=== PATIENT | female | born 1950 | race Caucasian/White ===

== ENCOUNTER 2022-12-04 22:19 | Inpatient (IN) | payer MEDICARE, OTHER ==
[2022-12-04] MEDS ORDERED: IPRATROPIUM 0.5 MG/2.5 ML NEBU INHALATION STA (22:24)
[2022-12-04] MEDS ORDERED: ALBUTEROL NEBULIZED 2.5 MG/3 ML INHALATION STA (22:24)
[2022-12-04] MEDS: MAGNESIUM SULFATE-D5W PMX 1 GM in DEXTROSE/WATER 1 100ML.BAG IVPB SCH ×2 (22:32→23:31)
[2022-12-04 22:48] LABS: Basophils % (A) 0 %; Eosinophils # (A) 0.1 k/uL (0-0.7); Eosinophils % (A) 1 %; HCT 42.5 % (34.0-46.0); Lymphocytes # (A) 0.5 k/uL (1.0-4.8); Lymphocytes % (A) 5 %; MCH 31.8 pg (25.0-35.0); MCV 96.4 fL (80.0-100.0); Mean Platelet Volume 8.1; Monocytes # (A) 0.8 k/uL (0-1.0); Monocytes % (A) 7 %; Neutrophils # (A) 9.2 k/uL (1.3-7.7); Neutrophils % (A) 85 %; Platelet Count 194 k/uL (150-450); RBC 4.41 m/uL (3.80-5.40); RDW 13.5 % (11.5-15.5); WBC 10.8 k/uL (3.8-10.6)
--- NOTE | 2022-12-04 22:52 | ED ---
General Adult HPI - General Chief complaint: Shortness of Breath Stated complaint: SOB Time Seen by Provider: 12/04/22 22:21 Source: patient Mode of arrival: EMS Limitations: no limitations - History of Present Illness Initial comments: This is a 72-year-old female with a past medical history including COPD and hypertension presents emergency department via EMS for shortness of breath. The patient stated that she has had increasing shortness of breath yesterday with worsening today. The patient stated that she could not take a full deep breath today so she called EMS. EMS did arrive and reported the patient had 60% oxygen saturation on room air. The patient had significant wheezing per EMS and she was given a DuoNeb and site Medrol. The patient had improvement of her breathing was taken to the emergency department for further evaluation workup. The patient reported that she still felt short of breath and "like shit." The patient denied any active chest pain or any lightheadedness or dizziness. The patient stated that she does not know what causes her COPD it worse but states that she is not on oxygen at home. The patient was resting in bed comfortably without any acute distress on my evaluation. - Related Data Allergies Allergy/AdvReac Type Severity Reaction Status Date / Time Penicillins Allergy Rash/Hives Verified 12/04/22 22:28 Review of Systems ROS Statement: Those systems with pertinent positive or pertinent negative responses have been documented in the HPI. ROS Other: All systems not noted in ROS Statement are negative. Past Medical History Past Medical History: Asthma, COPD, Hypertension History of Any Multi-Drug Resistant Organisms: None Reported Past Surgical History: No Surgical Hx Reported Past Psychological History: No Psychological Hx Reported Smoking Status: Former smoker Past Alcohol Use History: None Reported Past Drug Use History: None Reported General Exam Limitations: no limitations General appearance: alert, in no apparent distress Head exam: Present: atraumatic, normocephalic, normal inspection Eye exam: Present: normal appearance, PERRL Pupils: Present: normal accommodation ENT exam: Present: normal exam, normal oropharynx, mucous membranes moist Neck exam: Present: normal inspection, full ROM Respiratory exam: Present: wheezes, decreased breath sounds. Absent: respiratory distress Cardiovascular Exam: Present: normal rhythm, tachycardia, normal heart sounds GI/Abdominal exam: Present: soft, normal bowel sounds Extremities exam: Present: normal inspection, full ROM Back exam: Present: normal inspection, full ROM Neurological exam: Present: alert, oriented X3, CN II-XII intact Psychiatric exam: Present: normal affect, normal mood Skin exam: Present: warm, dry Course Vital Signs 12/04/22 12/04/22 12/04/22 22:20 22:33 22:50 Temperature 98.8 F Pulse Rate 115 H 110 H 109 H Respiratory 22 Rate Blood Pressure 149/108 O2 Sat by Pulse 95 Oximetry 12/04/22 12/05/22 23:27 00:00 Temperature 98.1 F Pulse Rate 98 99 Respiratory 20 18 Rate Blood Pressure 141/85 O2 Sat by Pulse 97 97 Oximetry EKG Findings - EKG Comments: EKG Findings:: An EKG was obtained and was interpreted by myself showing a rate of 114, AK interval 164, QRS duration of 85 and QTC of 395. This EKG showed a sinus tachycardia without any ST segment elevation or depression noted. Medical Decision Making - Medical Decision Making Was pt. sent in by a medical professional or institution (, PA, ENTRY LEVEL ELECTRICAL ENGINEER, urgent care, hospital, or custodial...) When possible be specific @ -No Did you speak to anyone other than the patient for history (EMS, parent, family, police, friend...)? What history was obtained from this source @ -Yes, EMS who stated they gave the patient a DuoNeb and 125 mg Solu-Medrol Did you review nursing and triage notes (agree or disagree)? Why? @ -I reviewed and agree with nursing and triage notes Were old charts reviewed (outside hosp., previous admission, EMS record, old EKG, old radiological studies, urgent care reports/EKG's, custodial records)? Report findings @ -No old charts were reviewed Differential Diagnosis (chest pain, altered mental status, abdominal pain women, abdominal pain men, vaginal bleeding, weakness, fever, dyspnea, syncope, headache, dizziness, GI bleed, back pain, seizure, CVA, palpatations, mental health)? @ -COPD exas, pneumonia, pneumothorax, ACS EKG interpreted by me (3pts min.). @ -As above X-rays interpreted by me (1pt min.). @ -Chest x-ray was obtained and was interpreted by myself showing bilateral small pleural effusions CT interpreted by me (1pt min.). @ -None done U/S interpreted by me (1pt. min.). @ -None done What testing was considered but not performed or refused? (CT, X-rays, U/S, labs)? Why? @ -None What meds were considered but not given or refused? Why? @ -None Did you discuss the management of the patient with other professionals (professionals i.e. , PA, ENTRY LEVEL ELECTRICAL ENGINEER, lab, RT, psych nurse, social science research assistant, jacket preparer, teacher, state highway police officer, logistics operations manager)? Give summary @ -Yes, admitting physician was contacted regarding patient admission. Was smoking cessation discussed for >3mins.? @ -No Was critical care preformed (if so, how long)? @ -Yes, see above Were there social determinants of health that impacted care today? How? (Homelessness, low income, unemployed, alcoholism, drug addiction, transportation, low edu. Level, literacy, decrease access to med. care, skilled nursing, rehab)? @ -No Was there de-escalation of care discussed even if they declined (Discuss DNR or withdrawal of care, Hospice)? DNR status @ -No What co-morbidities impacted this encounter? (DM, HTN, Smoking, COPD, CAD, Cancer, CVA, ARF, Chemo, Hep., AIDS, mental health diagnosis, sleep apnea, morbid obesity)? @ -COPD, hypertension Was patient admitted / discharged? Hospital course, mention meds given and route, prescriptions, significant lab abnormalities, going to OR and other pert inent info. @ -The patient was seen and evaluated emergency department. Physical exam, the patient was resting in bed without any acute distress. The patient did have improvement of her symptoms prior to arrival secondary to the patient's receiving medications by EMS. Vital signs admission were stable. Laboratory workup was obtained and was largely within normal as however troponin was elevated. The patient did receive a second breathing treatment here in the emergency department as well as magnesium. On reevaluation, the patient's respiratory status had greatly improved and the patient was resting in bed company. A second troponin level was also obtained but was increasing therefore the patient was started on IV heparin and treated for an NSTEMI in addition to t he COPD exacerbation. Due to these findings, the patient will be admitted for further workup and evaluation. The patient was agreeable to this and all her questions were answered appropriately. The patient was admitted stable condition. Undiagnosed new problem with uncertain prognosis? @ -No Drug Therapy requiring intensive monitoring for toxicity (Heparin, Nitro, Insulin, Cardizem)? @ -Heparin Were any procedures done? @ -No Diagnosis/symptom? @ -COPD exas, NSTEMI Acute, or Chronic, or Acute on Chronic? @ -Acute Uncomplicated (without systemic symptoms) or Complicated (systemic symptoms)? @ -Complicated Side effects of treatment? @ -No Exacerbation, Progression, or Severe Exacerbation? @ -Exacerbation Poses a threat to life or bodily function? How? (Chest pain, USA, CT, pneumonia, PE, COPD, DKA, ARF, appy, cholecystitis, CVA, Diverticulitis, Homicidal, Suicidal, threat to staff... and all critical care pts) @ -Yes, NSTEMI can lead to permanent cardiac damage, possible - Lab Data Result diagrams: 12/04/22 22:36 12/04/22 22:36 Lab Results 12/04/22 12/04/22 12/04/22 Range/Units 22:36 22:36 22:36 WBC 10.8 H (3.8-10.6) k/uL RBC 4.41 (3.80-5.40) m/uL Hgb 14.0 (11.4-16.0) gm/dL Hct 42.5 (34.0-46.0) % MCV 96.4 (80.0-100.0) fL MCH 31.8 (25.0-35.0) pg MCHC 33.0 (31.0-37.0) g/dL RDW 13.5 (11.5-15.5) % Plt Count 194 (150-450) k/uL MPV 8.1 Neutrophils % 85 % Lymphocytes % 5 % Monocytes % 7 % Eosinophils % 1 % Basophils % 0 % Neutrophils # 9.2 H (1.3-7.7) k/uL Lymphocytes # 0.5 L (1.0-4.8) k/uL Monocytes # 0.8 (0-1.0) k/uL Eosinophils # 0.1 (0-0.7) k/uL Basophils # 0.0 (0-0.2) k/uL Sodium 133 L (137-145) mmol/L Potassium 4.5 (3.5-5.1) mmol/L Chloride 95 L (98-107) mmol/L Carbon Dioxide 26 (22-30) mmol/L Anion Gap 12 mmol/L BUN 18 H (7-17) mg/dL Creatinine 0.59 (0.52-1.04) mg/dL Est GFR (CKD-EPI)AfAm >90 (>60 ml/min/1.73 sqM) Est GFR (CKD-EPI)NonAf >90 (>60 ml/min/1.73 sqM) Glucose 131 H (74-99) mg/dL Calcium 9.1 (8.4-10.2) mg/dL Magnesium 2.2 (1.6-2.3) mg/dL Total Bilirubin 0.7 (0.2-1.3) mg/dL AST 30 (14-36) U/L ALT 16 (4-34) U/L Alkaline Phosphatase 87 (38-126) U/L Troponin I 0.039 H* (0.000-0.034) ng/mL NT-Pro-B Natriuret Pep pg/mL Total Protein 7.8 (6.3-8.2) g/dL Albumin 4.6 (3.5-5.0) g/dL 12/04/22 12/05/22 Range/Units 22:36 01:28 WBC (3.8-10.6) k/uL RBC (3.80-5.40) m/uL Hgb (11.4-16.0) gm/dL Hct (34.0-46.0) % MCV (80.0-100.0) fL MCH (25.0-35.0) pg MCHC (31.0-37.0) g/dL RDW (11.5-15.5) % Plt Count (150-450) k/uL MPV Neutrophils % % Lymphocytes % % Monocytes % % Eosinophils % % Basophils % % Neutrophils # (1.3-7.7) k/uL Lymphocytes # (1.0-4.8) k/uL Monocytes # (0-1.0) k/uL Eosinophils # (0-0.7) k/uL Basophils # (0-0.2) k/uL Sodium (137-145) mmol/L Potassium (3.5-5.1) mmol/L Chloride (98-107) mmol/L Carbon Dioxide (22-30) mmol/L Anion Gap mmol/L BUN (7-17) mg/dL Creatinine (0.52-1.04) mg/dL Est GFR (CKD-EPI)AfAm (>60 ml/min/1.73 sqM) Est GFR (CKD-EPI)NonAf (>60 ml/min/1.73 sqM) Glucose (74-99) mg/dL Calcium (8.4-10.2) mg/dL Magnesium (1.6-2.3) mg/dL Total Bilirubin (0.2-1.3) mg/dL AST (14-36) U/L ALT (4-34) U/L Alkaline Phosphatase (38-126) U/L Troponin I 0.054 H* (0.000-0.034) ng/mL NT-Pro-B Natriuret Pep 718 pg/mL Total Protein (6.3-8.2) g/dL Albumin (3.5-5.0) g/dL Critical Care Time Critical Care Time: Yes Total Critical Care Time: 35 Disposition Clinical Impression: NSTEMI (non-ST elevated myocardial infarction), COPD exacerbation Disposition: ADMITTED IP TO THIS [facility] Condition: Stable Is patient prescribed a controlled substance at d/c from ED?: No Time of Disposition: 00:05 Decision to Admit Reason: Admit from EC Decision Date: 12/05/22 Decision Time: 00:05
[2022-12-04 23:09] LABS: African American GFR (CKD) >90 (>60 ml/min/1.73 sqM); Albumin 4.6 g/dL (3.5-5.0); Anion Gap 12 mmol/L; Blood Urea Nitrogen 18 mg/dL (7-17); Calcium 9.1 mg/dL (8.4-10.2); Carbon Dioxide 26 mmol/L (22-30); Chloride 95 mmol/L (98-107); Glucose 131 mg/dL (74-99); Non-African American GFR(CKD) >90 (>60 ml/min/1.73 sqM); Sodium 133 mmol/L (137-145); Total Bilirubin 0.7 mg/dL (0.2-1.3); Total Protein 7.8 g/dL (6.3-8.2)
[2022-12-04 23:51] LABS: ALT 16 U/L (4-34); AST 30 U/L (14-36); Alkaline Phosphatase 87 U/L (38-126); Magnesium 2.2 mg/dL (1.6-2.3); Potassium 4.5 mmol/L (3.5-5.1)
--- NOTE | 2022-12-04 23:57 | XR ---
EXAM: XR Chest, 2 Views CLINICAL HISTORY: ITS.REASON XR Reason: CP TECHNIQUE: Frontal and lateral views of the chest. COMPARISON: No relevant prior studies available. FINDINGS: Lungs: Unremarkable. No consolidation. Pleural space: Small bilateral pleural effusions. No pneumothorax. Heart: Cardiomegaly. Mediastinum: Unremarkable. Bones/joints: Unremarkable. IMPRESSION: Small bilateral pleural effusions.
[2022-12-05] MEDS ORDERED: HEPARIN SODIUM 1,000 UN/ML (10ML VL) IV ONE (02:37)
[2022-12-05] MEDS ORDERED: HEPARIN SODIUM 1,000 UN/ML (10ML VL) IV PRN (02:37)
[2022-12-05] MEDS ORDERED: NALOXONE 0.4 MG/ML 1 ML VIAL IV PRN (02:38)
[2022-12-05] MEDS ORDERED: IPRATROPIUM-ALBUTEROL 3 ML NEB INHALATION PRN ×2 (02:39→03:40)
[2022-12-05] MEDS ORDERED: HEPARIN SOD,PORK IN 0.45% NACL 25,000 UNIT in 0.45% NACL 1 250ML.BAG IV SCH (02:45)
[2022-12-05 03:04] LABS: INR 0.9 (<1.2); Prothrombin Time 9.7 sec (9.0-12.0)
[2022-12-05] MEDS ORDERED: predniSONE 20 MG TAB PO SCH (03:18)
--- NOTE | 2022-12-05 03:19 | P.HPIM ---
History of Present Illness H&P Date: 12/05/22 Chief Complaint: SOB 72 year old female with COPD not on home oxygen patient reports some difficulty of breathing over past 3 days , and got worse today with increase chest pressure and discomfort , she reports wheezing, congestion , thick phlegm, coughing. she is getting these symptoms even while resting doing nothing , denies any fever, chills nausea or vomiting denies any recent sick contacts , or recent travel . no recent hospital stay, denies any history of blood clots. EMS reported oxygen saturation of 50s upon picking her up. Review of Systems Pertinent positives as noted in HPI. All other systems were reviewed and are negative Past Medical History Past Medical History: Asthma, COPD, Hypertension History of Any Multi-Drug Resistant Organisms: None Reported Past Surgical History: No Surgical Hx Reported Past Psychological History: No Psychological Hx Reported Smoking Status: Former smoker Past Alcohol Use History: None Reported Past Drug Use History: None Reported Medications and Allergies Allergies Allergy/AdvReac Type Severity Reaction Status Date / Time Penicillins Allergy Rash/Hives Verified 12/04/22 22:28 Physical Exam Vitals: Vital Signs Temp Pulse Resp BP Pulse Ox 12/05/22 00:00 98.1 F 99 18 141/85 97 12/04/22 23:27 98 20 97 12/04/22 22:50 109 H 12/04/22 22:33 110 H 12/04/22 22:20 98.8 F 115 H 22 149/108 95 Intake and Output 12/04/22 12/04/22 12/05/22 14:59 22:59 06:59 Other: Weight 70.307 kg Constitutional: No acute distress, conversant, pleasant Eyes: Anicteric sclerae, moist conjunctiva, Pupils equal round reactive to light ENMT: NC/AT Oropharynx clear, no erythema, or exudates Neck: Supple, no masses, or JVD No carotid bruits No thyromegaly Lungs: good breath sounds with some wheezing Clear to percussion Normal respiratory effort, no accessory muscle use Cardiovascular: Heart regular in rate and rhythm, No murmurs, gallops, or rubs No peripheral edema Abdominal: Soft Nontender, no guarding, rebound or rigidity Abdomen moving with respiration Normoactive bowel sounds No hepatomegaly, No splenomegaly No palpable mass No abdominal wall hernia noted Skin: Normal temperature, tone, texture, turgor No induration No subcutaneous nodules No rash, lesions No ulcers Extremities: No digital cyanosis No clubbing Pedal pulses intact and symmetrical Radial pulses intact and symmetrical No calf tenderness Psychiatric: Alert and oriented to person, place and time Appropriate affect fair judgement Neuro Muscles Strength 5/5 in all 4 extremities Sensation to light touch grossly present throughout Cranial nerves II-XII grossly intact Lymphatics: no palpable cervical or supraclavicular lymph nodes Results CBC & Chem 7: 12/04/22 22:36 12/04/22 22:36 Labs: Abnormal Lab Results - Last 24 Hours (Table) 12/04/22 12/04/22 12/04/22 Range/Units 22:36 22:36 22:36 WBC 10.8 H (3.8-10.6) k/uL Neutrophils # 9.2 H (1.3-7.7) k/uL Lymphocytes # 0.5 L (1.0-4.8) k/uL Sodium 133 L (137-145) mmol/L Chloride 95 L (98-107) mmol/L BUN 18 H (7-17) mg/dL Glucose 131 H (74-99) mg/dL Troponin I 0.039 H* (0.000-0.034) ng/mL 12/05/22 Range/Units 01:28 WBC (3.8-10.6) k/uL Neutrophils # (1.3-7.7) k/uL Lymphocytes # (1.0-4.8) k/uL Sodium (137-145) mmol/L Chloride (98-107) mmol/L BUN (7-17) mg/dL Glucose (74-99) mg/dL Troponin I 0.054 H* (0.000-0.034) ng/mL Assessment and Plan Assessment: 72 year old female with dyspnea and PHANI, I discussed the case with ED doc, and I accepted the admission for COPD treatment with anticipated length of stay < 2 midnights acute COPD exacerbation supplemental oxygen as needed duonebs PRN and around the clock monitor vital signs PO systemic steroids doxy 100 mg po bid supportive chcf oxygen requirement prior to discharge NSTEMI daily aspirin heparin gtt trend trops cardiology consult full code DVT PPX heparin sc tid
[2022-12-05] MEDS: methylPREDNISolone SOD SUCCI 125 MG/2 ML VIAL IV SCH ×4 (03:59→17:56)
--- NOTE | 2022-12-05 04:59 | P.CNPUL ---
History of Present Illness Consult date: 12/05/22 Requesting physician: Venkatesh Meehan Reason for consult: COPD Chief complaint: Shortness of breath 3 days History of present illness: I am seeing this patient in new consultation today 12/05/2022 for acute shortness of breath that started approximately 3 days ago. Patient is a 72-year-old white female with medical history significant for COPD and hypertension. She does not follow with a mds nurse. Her primary care provider is Shavon Fisher out of [place], [place]. Her COPD is normally managed with Flovent and albuterol inhalers. She also supplements her regimen with an [id number] Primatene inhaler, and has been using this very frequently over the last couple days. Patient reports shortness of breath starting approximately 3 days ago. This was accompanied with generalized malaise, wheezing, a congested nonproductive cough, and chest discomfort. She denies any fevers, chills, hemoptysis. Denies sick contacts. She denies any orthopnea, PND, lower extremity swelling. Patient is currently sitting up in bed, on 2 L nasal cannula, in no acute distress. Chest x-ray on arrival shows small bilateral pleural effusions and cardiomegaly. No focal consolidation or evidence of pneumonia. she is afebrile. CBC on arrival shows a WBC count of 10.8, hemoglobin 14, hematocrit 42.5, platelets 194. BMP shows sodium 133, potassium 4.5, chloride 95, serum CO2 26, BUN 18, creatinine 0.59, glucose 131. Troponins were mildly elevated at 0.039 and 0.054 respectively. NT proBNP was not significant elevated for patient's age at 716. No ECG evidence of acute ischemia. Heparin is infusing per low-dose protocol. Patient will be monitored on the cardiac stepdown unit once bed available. Review of Systems REVIEW OF SYSTEMS: CONSTITUTIONAL: Denies any recent significant weight loss or weight gain. EYES: Denies change in vision. EARS, NOSE, MOUTH, THROAT: Denies headaches, denies sore throat. CARDIOVASCULAR: Denies chest pain, palpitations or syncopal episodes. RESPIRATORY: See HPI GASTROINTESTINAL: Denies change in appetite, abdominal pain, nausea and vomiting, or diarrhea GENITOURINARY: Denies hematuria, denies infections. MUSKULOSKELETAL: Denies pain, denies swelling. INTEGUMENTARY: Denies rash, denies eczema. NEUROLOGICAL: Denies recent memory loss, no recent seizure activity. PSYCHIATRIC: Denies anxiety, denies depression. HEMATOLOGIC/LYMPHATIC: Denies anemia, denies enlarged lymph node Past Medical History Past Medical History: Asthma, COPD, Hypertension History of Any Multi-Drug Resistant Organisms: None Reported Past Surgical History: No Surgical Hx Reported Past Psychological History: No Psychological Hx Reported Smoking Status: Former smoker Past Alcohol Use History: None Reported Past Drug Use History: None Reported Medications and Allergies Allergies Allergy/AdvReac Type Severity Reaction Status Date / Time Penicillins Allergy Rash/Hives Verified 12/04/22 22:28 Physical Exam Vitals: Vital Signs Temp Pulse Resp BP Pulse Ox 12/05/22 00:00 98.1 F 99 18 141/85 97 12/04/22 23:27 98 20 97 12/04/22 22:50 109 H 12/04/22 22:33 110 H 12/04/22 22:20 98.8 F 115 H 22 149/108 95 Intake and Output 12/04/22 12/04/22 12/05/22 14:59 22:59 06:59 Other: Weight 70.307 kg GENERAL EXAM: Alert, 72-year-old white female, comfortable in no apparent distress. HEAD: Normocephalic and atraumatic EYES: Normal reaction of pupils, equal size. NOSE: Clear with pink turbinates. THROAT: No erythema or exudates. NECK: No masses, no JVD. CHEST: No chest wall deformity. LUNGS: Equal air entry with diminished lung sounds throughout. no crackles, wheeze, rhonchi or dullness. On 2 L nasal cannula. No conversational dyspnea or accessory muscle use.. CVS: S1 and S2 normal with no audible murmur, regular rhythm. No extra heart sounds ABDOMEN: No hepatosplenomegaly, active bowel sounds, no guarding or rigidity. SPINE: No scoliosis or deformity SKIN: No rashes CENTRAL NERVOUS SYSTEM: No focal deficits, tone is normal in all 4 extremities. EXTREMITIES: There is no peripheral edema, clubbing, or cyanosis. Peripheral pulses are intact. Results - Laboratory Findings CBC and BMP: 12/04/22 22:36 12/04/22 22:36 Abnormal lab findings: Abnormal Labs 12/04/22 12/04/22 12/04/22 22:36 22:36 22:36 WBC 10.8 H Neutrophils # 9.2 H Lymphocytes # 0.5 L Sodium 133 L Chloride 95 L BUN 18 H Glucose 131 H Troponin I 0.039 H* 12/05/22 01:28 WBC Neutrophils # Lymphocytes # Sodium Chloride BUN Glucose Troponin I 0.054 H* - Diagnostic Findings Chest x-ray: image reviewed Assessment and Plan Assessment: Acute hypoxemic respiratory failure secondary to COPD exacerbation. Chest x-ray on arrival shows no focal consolidation or evidence of pneumonia. There were small bilateral pleural effusions and cardiomegaly. NT pro-BNP only 718 Elevated troponins, possibly non-ST elevation ND, currently on low intensity heparin infusion per protocol Essential hypertension Ex-smoker Plan: Patient's medications, labs, chest x-ray reviewed Continue supplemental oxygen to maintain oxygen saturation 92% or greater Start the patient on bronchodilators, Symbicort inhaler, IV site Medrol. Continue empiric antibiotics, and check procalcitonin level Check for COVID-19 Continue low-dose heparin per protocol Trend troponins Cardiology was consulted We will continue to follow I have personally seen and examined the patient, performed the documentation and the assessment and plan as written. Number of minutes spent on the visit:20 Time with Patient: Greater than 30
[2022-12-05] MEDS: IPRATROPIUM-ALBUTEROL 3 ML NEB INHALATION SCH ×4 (08:53→20:28)
[2022-12-05] MEDS: SYMBICORT 160-4.5 MCG INHALER INHALATION SCH ×2 (08:53→20:28)
[2022-12-05] MEDS: ASPIRIN 81 MG PO SCH (09:35)
[2022-12-05] MEDS: DOXYCYCLINE 100 MG CAP PO SCH ×2 (09:35→20:14)
[2022-12-05] MEDS ORDERED: carvediloL 6.25 MG TAB PO SCH (09:45)
[2022-12-05] MEDS ORDERED: METOPROLOL TARTRATE 25 MG TAB PO SCH (10:00)
[2022-12-05] MEDS: LOSARTAN 50 MG TAB PO SCH (10:26)
[2022-12-05] MEDS: METOPROLOL TARTRATE 50 MG TAB PO SCH ×2 (10:26→20:14)
[2022-12-05] MEDS: DILTIAZEM ORAL 60 MG TAB PO SCH ×2 (10:26→16:39)
--- NOTE | 2022-12-05 11:37 | P.CRDCN ---
History of Present Illness History of present illness: HISTORY OF PRESENT ILLNESS: This is a 72-year-old female with a past medical history significant for COPD, former nicotine dependence, and hypertension. Patient does not follow with a senior attorney. We have been asked to see the patient in consultation for abnormal troponins. Patient examined at the bedside. Patient presented to the hospital with a chief complaint of shortness of breath. She states she has been feeling short of breath for the past few days and it has been progressively getting worse. The patient was found to have an acute COPD exacerbation. She was placed on IV steroids and nebulizer treatments. She reports significant improvement in her shortness of breath this morning. She denies any chest pain or pressure. Telemetry reveals sinus tachycardia with heart rate around 110. Blood pressure slightly elevated with a recent reading of 149/90. * EKG reveals sinus tachycardia with no signs of acute ischemia * Chest xray small bilateral pleural effusions * Laboratory data: WBC 10.8. Hemoglobin 14.0. Platelet count 194. D-dimer 0.54. Sodium 133. Potassium 4.5. BUN 18. Creatinine 0.59. ProBNP 718. Troponin 0.039. 0.054. TSH 0.559. * Current home cardiac medications include Cardizem 120 mg twice a day, losartan 100 mg daily, and carvedilol 6.25 mg twice a day REVIEW OF SYSTEMS: At the time of my exam: CONSTITUTIONAL: Denies fever or chills. HEENT: Denies blurred vision, vision changes, or eye pain. Denies hemoptysis CARDIOVASCULAR: Denies chest pain. Denies orthopnea. Denies PND. Denies palpitations RESPIRATORY: Denies shortness of breath. GASTROINTESTINAL: Denies abdominal pain. Denies nausea or vomiting. HEMATOLOGIC: Denies bleeding disorders. GENITOURINARY: Denies any blood in urine. SKIN: Denies pruitis. Denies rash. PHYSICAL EXAM: VITAL SIGNS: Reviewed. GENERAL: Well-developed in no acute distress. HEENT: Head is normocephalic. Pupils are equal, round. Sclerae anicteric. Mucous membranes of the mouth are moist. Neck supple. No JVD or thyromegaly LUNGS: Respirations even and unlabored. Lungs diminished with inspiratory wheezing and short rhonchi HEART: Regular rate and rhythm. S1 and S2 heard. ABDOMEN: Soft. Nondistended. Nontender. EXTREMITIES: Normal range of motion. No clubbing or cyanosis. Peripheral pulses intact. No lower extremity edema NEUROLOGIC: Awake and alert. Oriented x 3. ASSESSMENT: Shortness of breath Acute COPD exacerbation Acute hypoxic respiratory failure requiring supplemental oxygen Abnormal troponins, likely type II MD secondary to oxygen supply and demand mismatch Hypertension Sinus tachycardia Former nicotine dependence, patient quit smoking in 2012 PLAN: An acute coronary event has been ruled out Resume home cardiac medications Change carvedilol to metoprolol 50 mg twice a day. Continue telemetry monitoring Discontinue IV heparin. Begin subcu heparin Obtain 2-D echo to assess cardiac structure and function Recommend outpatient stress testing when acute pulmonary issues have resolved Further recommendations pending patient's course Nurse practitioner note has been reviewed by physician. Signing provider agrees with the documented findings, assessment, and plan of care. Past Medical History Past Medical History: Asthma, COPD, Hypertension History of Any Multi-Drug Resistant Organisms: None Reported Past Surgical History: No Surgical Hx Reported Past Psychological History: No Psychological Hx Reported Smoking Status: Former smoker Past Alcohol Use History: None Reported Past Drug Use History: None Reported Medications and Allergies Home Medications Medication Instructions Recorded Confirmed Type Albuterol Nebulized [Ventolin 2.5 mg INHALATION RT-QID PRN 12/05/22 12/05/22 History Nebulized] Albuterol Sulfate [Proair 2 puff INHALATION RT-QID PRN 12/05/22 12/05/22 History Respiclick] Alendronate Sodium [Fosamax] 70 mg PO WEEKLY 12/05/22 12/05/22 History Cholecalciferol [Vitamin D3 (25 25 mcg PO DAILY 12/05/22 12/05/22 History Mcg = 1000 Iu)] Cyclobenzaprine [Flexeril] 10 mg PO BID PRN 12/05/22 12/05/22 History EPINEPHrine [Primatene Mist] 1 puff INHALATION RT-QID PRN 12/05/22 12/05/22 History Gabapentin [Neurontin] 400 mg PO TID 12/05/22 12/05/22 History Losartan Potassium 100 mg PO DAILY 12/05/22 12/05/22 History Vitamin C/Biotin [Hair, Skin and 1 tab PO DAILY 12/05/22 12/05/22 History Nails Chew] carvediloL [Coreg] 6.25 mg PO BID 12/05/22 12/05/22 History dilTIAZem HCL [Cardizem] 120 mg PO AC-BID 12/05/22 12/05/22 History Allergies Allergy/AdvReac Type Severity Reaction Status Date / Time Penicillins Allergy Unknown Verified 12/05/22 08:07 Childhood Physical Exam Vitals: Vital Signs Temp Pulse Resp BP Pulse Ox 12/05/22 08:53 113 H 12/05/22 06:00 102 H 16 155/89 95 12/05/22 04:50 97 12/05/22 04:00 99 20 148/93 97 12/05/22 00:00 98.1 F 99 18 141/85 97 12/04/22 23:27 98 20 97 12/04/22 22:50 109 H 12/04/22 22:33 110 H 12/04/22 22:20 98.8 F 115 H 22 149/108 95 Intake and Output 12/04/22 12/05/22 12/05/22 22:59 06:59 14:59 Other: Weight 70.307 kg Results 12/04/22 22:36 12/04/22 22:36 Cardiac Enzymes 12/04/22 12/04/22 12/05/22 Range/Units 22:36 22:36 01:28 AST 30 (14-36) U/L Troponin I 0.039 H* 0.054 H* (0.000-0.034) ng/mL Coagulation 12/05/22 Range/Units 02:43 PT 9.7 (9.0-12.0) sec APTT 19.0 L (22.0-30.0) sec CBC 12/04/22 Range/Units 22:36 WBC 10.8 H (3.8-10.6) k/uL RBC 4.41 (3.80-5.40) m/uL Hgb 14.0 (11.4-16.0) gm/dL Hct 42.5 (34.0-46.0) % Plt Count 194 (150-450) k/uL Comprehensive Metabolic Panel 12/04/22 Range/Units 22:36 Sodium 133 L (137-145) mmol/L Potassium 4.5 (3.5-5.1) mmol/L Chloride 95 L (98-107) mmol/L Carbon Dioxide 26 (22-30) mmol/L BUN 18 H (7-17) mg/dL Creatinine 0.59 (0.52-1.04) mg/dL Glucose 131 H (74-99) mg/dL Calcium 9.1 (8.4-10.2) mg/dL AST 30 (14-36) U/L ALT 16 (4-34) U/L Alkaline Phosphatase 87 (38-126) U/L Total Protein 7.8 (6.3-8.2) g/dL Albumin 4.6 (3.5-5.0) g/dL Current Medications Generic Name Dose Route Start Last Admin Trade Name Freq PRN Reason Stop Dose Admin Albuterol/Ipratropium 3 ml 12/05/22 03:40 Ipratropium-Albuterol 3 Ml Neb INHALATION RT-Q2H PRN Shortness Of Breath Albuterol/Ipratropium 3 ml 12/05/22 08:00 12/05/22 08:53 Ipratropium-Albuterol 3 Ml Neb INHALATION 3 ml RT-QID MAYNOR Administration Aspirin 81 mg 12/05/22 09:00 Aspirin 81 Mg PO DAILY MAYNOR Budesonide/Formoterol Fumarate 2 puff 12/05/22 08:00 12/05/22 08:53 Symbicort 160-4.5 Mcg Inhaler INHALATION 2 puff RT-BID MAYNOR Administration Doxycycline Monohydrate 100 mg 12/05/22 09:00 Doxycycline 100 Mg Cap PO BID MAYNOR Protocol Heparin Sodium (Porcine) 0 unit 12/05/22 02:37 Heparin Sodium 1,000 Un/Ml (10ml Vl) IV PER PROTOCOL PRN Low PTT Protocol Heparin Sodium/Sodium Chloride 250 mls @ 8.437 mls/hr 12/05/22 02:45 12/05/22 03:07 25,000 unit/ Sodium Chloride IV 12 units/kg/hr .Q24H MAYNOR 8.437 mls/hr Administration Protocol 12 UNITS/KG/HR Methylprednisolone Sodium Succinate 60 mg 12/05/22 06:00 12/05/22 06:39 Methylprednisolone Sod Succi 125 Mg/2 Ml Vial IV 60 mg Q6HR MAYNOR Administration Naloxone HCl 0.2 mg 12/05/22 02:38 Naloxone 0.4 Mg/Ml 1 Ml Vial IV Q2M PRN Opioid Reversal Intake and Output 12/04/22 12/05/22 12/05/22 22:59 06:59 14:59 Other: Weight 70.307 kg 12/04/22 22:36 12/04/22 22:36
--- NOTE | 2022-12-05 13:05 | CA ---
Transthoracic Echo Report Name: Pricila Escamilla Age: 72 Gender: F : 1950 Exam Date: 12/05/2022 10:57 Exam Location: [facility] Ht (in): 67 Wt (lb): 155 Ordering Physician: Jessica Lopez Attending/Referring Phys: [id number], John Paradi Tender Reddy Chester Procedure CPT: Indications: LV function Cardiac Hx: Technical Quality: Technically difficult study Contrast 1: Total Dose (mL): Contrast 2: Total Dose (mL): MEASUREMENTS (Male / Female) Normal Values 2D ECHO LV Diastolic Diameter PLAX 3.2 cm 4.2 - 5.9 / 3.9 - 5.3 cm LV Systolic Diameter PLAX 2.4 cm IVS Diastolic Thickness 1.1 cm 0.6 - 1.0 / 0.6 - 0.9 cm LVPW Diastolic Thickness 1.0 cm 0.6 - 1.0 / 0.6 - 0.9 cm LV Relative Wall Thickness 0.7 RV Internal Dim ED PLAX 3.2 cm LVOT Diameter 1.9 cm Aortic Root Diameter 2.6 cm LA Systolic Diameter LX 2.9 cm 3.0 - 4.0 / 2.7 - 3.8 cm LV Diastolic Volume MOD BP 31.6 cm??? 67 - 155 / 56 - 104 cm??? LV Systolic Volume MOD BP 10.5 cm??? 22 - 58 / 19 - 49 cm??? LV Ejection Fraction MOD BP 66.9 % >= 55 % LV Diastolic Volume MOD 4C 28.2 cm??? LV Systolic Volume MOD 4C 7.0 cm??? LV Ejection Fraction MOD 4C 75.3 % LV Diastolic Length 4C 5.9 cm LV Systolic Length 4C 5.2 cm LV Diastolic Volume MOD 2C 33.8 cm??? LV Systolic Volume MOD 2C 14.9 cm??? LV Ejection Fraction MOD 2C 55.7 % LV Diastolic Length 2C 5.6 cm LV Systolic Length 2C 4.9 cm LA Volume 33.5 cm??? 18 - 58 / 22 - 52 cm??? DOPPLER AV Peak Velocity 117.1 cm/s AV Peak Gradient 5.5 mmHg LVOT Peak Velocity 99.9 cm/s LVOT Peak Gradient 4.0 mmHg AV Area Cont Eq pk 2.3 cm??? Mitral E Point Velocity 93.2 cm/s Mitral A Point Velocity 118.0 cm/s Mitral E to A Ratio 0.8 MV Deceleration Time 177.2 ms MV E' Velocity 10.4 cm/s Mitral E to MV E' Ratio 9.0 TR Peak Velocity 178.7 cm/s TR Peak Gradient 12.8 mmHg Right Ventricular Systolic Press 18.7 mmHg PV Peak Velocity 120.1 cm/s PV Peak Gradient 5.8 mmHg FINDINGS Left Ventricle Left ventricular ejection fraction is estimated at 55-60 %.left ventricular cavity size normal. Normal left ventricular wall motion. Right Ventricle Normal right ventricular size.right ventricular systolic pressure within normal limits. Right Atrium Normal right atrial size. Left Atrium Normal left atrial size. Mitral Valve Structurally normal mitral valve. Trace to mild mitral regurgitation. Aortic Valve Aortic valve not well visualized. No aortic valve stenosis or regurgitation. Tricuspid Valve Structurally normal tricuspid valve. Mild TR. Pulmonic Valve Pulmonic valve not well visualized. No pulmonic regurgitation. Pericardium Normal pericardium. Aorta Normal size aortic root and proximal ascending aorta. CONCLUSIONS 1. Normal size and systolic function 2. Tricuspid regurgitation with trace to mild regurgitation Previewed by: Dr. Toñito Jones MD (Electronically Signed) Final Date: 05 December 2022 13:04
[2022-12-05] MEDS: HEPARIN SODIUM,PORCINE/PF 5,000 UNIT/0.5 ML SYRINGE SQ SCH (15:37)
[2022-12-05] MEDS: ATORVASTATIN 40 MG TAB PO SCH (20:14)
[2022-12-06] MEDS: HEPARIN SODIUM,PORCINE/PF 5,000 UNIT/0.5 ML SYRINGE SQ SCH ×3 (00:07→16:59)
[2022-12-06] MEDS: methylPREDNISolone SOD SUCCI 125 MG/2 ML VIAL IV SCH ×4 (01:03→16:59)
[2022-12-06] MEDS: DILTIAZEM ORAL 60 MG TAB PO SCH ×2 (08:13→16:59)
[2022-12-06] MEDS: DOXYCYCLINE 100 MG CAP PO SCH ×2 (08:13→20:39)
[2022-12-06] MEDS: LOSARTAN 50 MG TAB PO SCH (08:14)
[2022-12-06] MEDS: METOPROLOL TARTRATE 50 MG TAB PO SCH ×2 (08:15→20:39)
[2022-12-06] MEDS: ASPIRIN 81 MG PO SCH (08:17)
[2022-12-06] MEDS: IPRATROPIUM-ALBUTEROL 3 ML NEB INHALATION SCH ×4 (08:18→20:19)
[2022-12-06] MEDS: SYMBICORT 160-4.5 MCG INHALER INHALATION SCH ×2 (08:18→20:19)
--- NOTE | 2022-12-06 10:50 | P.PN ---
Subjective Progress Note Date: 12/06/22 HISTORY OF PRESENT ILLNESS: This is a 72-year-old female with a past medical history significant for COPD, former nicotine dependence, and hypertension. Patient does not follow with a exterminator termite. We have been asked to see the patient in consultation for abnormal troponins. Patient examined at the bedside. Patient presented to the hospital with a chief complaint of shortness of breath. She states she has been feeling short of breath for the past few days and it has been progressively getting wor se. The patient was found to have an acute COPD exacerbation. She was placed on IV steroids and nebulizer treatments. She reports significant improvement in her shortness of breath this morning. She denies any chest pain or pressure. Telemetry reveals sinus tachycardia with heart rate around 110. Blood pressure slightly elevated with a recent reading of 149/90. * EKG reveals sinus tachycardia with no signs of acute ischemia * Chest xray small bilateral pleural effusions * Laboratory data: WBC 10.8. Hemoglobin 14.0. Platelet count 194. D-dimer 0.54. Sodium 133. Potassium 4.5. BUN 18. Creatinine 0.59. ProBNP 718. Troponin 0.039. 0.054. TSH 0.559. * Current home cardiac medications include Cardizem 120 mg twice a day, losartan 100 mg daily, and carvedilol 6.25 mg twice a day 12/06 Patient is seen today in follow-up. She remains in the emergency center. She states in general she is feeling a little bit better. She continues to have a cough with sputum production. Echocardiogram reveals normal size and systolic function with mild TR and mild MR. Pulse ox 95% on 3 L nasal cannula. PHYSICAL EXAM: VITAL SIGNS: Reviewed. GENERAL: Well-developed in no acute distress. HEENT: Head is normocephalic. Pupils are equal, round. Sclerae anicteric. Mucous membranes of the mouth are moist. Neck supple. No JVD or thyromegaly LUNGS: Respirations even and unlabored. Lungs diminished with inspiratory wheezing and short rhonchi HEART: Regular rate and rhythm. S1 and S2 heard. ABDOMEN: Soft. Nondistended. Nontender. EXTREMITIES: Normal range of motion. No clubbing or cyanosis. Peripheral pulses intact. No lower extremity edema NEUROLOGIC: Awake and alert. Oriented x 3. ASSESSMENT: Shortness of breath Acute COPD exacerbation Acute hypoxic respiratory failure requiring supplemental oxygen Abnormal troponins, likely type II LA secondary to oxygen supply and demand mi smatch Hypertension Sinus tachycardia Former nicotine dependence, patient quit smoking in 2012 PLAN: An acute coronary event has been ruled out Resume home cardiac medications Continue metoprolol 50 mg twice a day. Continue telemetry monitoring Continue subcu heparin Recommend outpatient stress testing when acute pulmonary issues have resolved Further recommendations pending patient's course Nurse practitioner note has been reviewed by physician. Signing provider agrees with the documented findings, assessment, and plan of care. Objective - Vital Signs Vital signs: Vital Signs Temp 97.3 F L 12/06/22 08:10 Pulse 78 12/06/22 08:33 Resp 20 12/06/22 08:10 BP 144/85 12/06/22 08:10 Pulse Ox 95 12/06/22 08:20 FiO2 Intake & Output 12/05/22 12/06/22 12/06/22 18:59 06:59 18:59 Other: Voiding Method Toilet # Voids 2 1 - Labs CBC & Chem 7: 12/04/22 22:36 12/04/22 22:36 Labs: Abnormal Lab Results - Last 24 Hours (Table) 12/04/22 12/05/22 12/06/22 Range/Units 22:36 08:48 06:05 APTT 50.9 H 21.8 L (22.0-30.0) sec Procalcitonin 0.11 H (0.02-0.09) ng/mL
--- NOTE | 2022-12-06 11:14 | P.PN ---
Subjective Progress Note Date: 12/06/22 I am seeing this patient in new consultation today 12/05/2022 for acute shortness of breath that started approximately 3 days ago. Patient is a 72-year-old white female with medical history significant for COPD and hypertension. She does not follow with a certified nursing attendant. Her primary care provider is Shavon Fisher out of [place], [place]. Her COPD is normally managed with Flovent and albuterol inhalers. She also supplements her regimen with an [id number] Primatene inhaler, and has been using this very frequently over the last couple days. Patient reports shortness of breath starting approximately 3 days ago. This was accompanied with generalized malaise, wheezing, a congested nonproductive cough, and chest discomfort. She denies any fevers, chills, hemoptysis. Denies sick contacts. She denies any orthopnea, PND, lower extremity swelling. Patient is currently sitting up in bed, on 2 L nasal cannula, in no acute distress. Chest x-ray on arrival shows small bilateral pleural effusions and cardiomegaly. No focal consolidation or evidence of pneumonia. she is afebrile. CBC on arrival shows a WBC count of 10.8, hemoglobin 14, hematocrit 42.5, platelets 194. BMP shows sodium 133, potassium 4.5, chloride 95, serum CO2 26, BUN 18, creatinine 0.59, glucose 131. Troponins were mildly elevated at 0.039 and 0.054 respectively. NT proBNP was not significant elevated for patient's age at 718. No ECG evidence of acute ischemia. Heparin is infusing per low-dose protocol. Patient will be monitored on the cardiac stepdown unit once bed available. The patient is seen today 12/06/2022 in follow-up in the emergency department. She is currently sitting up in a stretcher. Awake and alert in no acute distress. Maintaining O2 saturations in the 90s on 3 L/m per nasal cannula. No IV fluids. Echocardiogram reveals preserved left ventricular systolic function with ejection fraction 55-60%. She is continued on DuoNeb inhalations, Symbicort, IV Solu-Medrol. Empiric antibiotics in the form of doxycycline. Heparin for DVT prophylaxis. Objective - Vital Signs Vital signs: Vital Signs Temp 97.3 F L 12/06/22 08:10 Pulse 78 06/13/23 08:33 Resp 20 12/06/22 08:10 BP 144/85 12/06/22 08:10 Pulse Ox 95 12/06/22 08:20 FiO2 Intake & Output 12/05/22 12/06/22 12/06/22 18:59 06:59 18:59 Other: Voiding Method Toilet # Voids 2 1 - Exam GENERAL EXAM: Alert, oriented pleasant 72-year-old female, on 3 L nasal cannula, comfortable in no apparent distress. HEAD: Normocephalic. EYES: Normal reaction of pupils, equal size. NOSE: Clear with pink turbinates. THROAT: No erythema or exudates. NECK: No masses, no JVD. CHEST: No chest wall deformity. LUNGS: Equal air entry with bilateral end expiratory wheeze, diminished. CVS: S1 and S2 normal with no audible murmur, regular rhythm. ABDOMEN: No hepatosplenomegaly, normal bowel sounds, no guarding or rigidity. SPINE: No scoliosis or deformity SKIN: No rashes CENTRAL NERVOUS SYSTEM: No focal deficits, tone is normal in all 4 extremities. EXTREMITIES: There is no peripheral edema. No clubbing, no cyanosis. Peripheral pulses are intact. - Labs CBC & Chem 7: 12/04/22 22:36 12/04/22 22:36 Labs: Abnormal Lab Results - Last 24 Hours (Table) 12/06/22 Range/Units 06:05 APTT 21.8 L (22.0-30.0) sec Assessment and Plan Assessment: Acute hypoxemic respiratory failure secondary to COPD exacerbation. Chest x-ray on arrival shows no focal consolidation or evidence of pneumonia. There were small bilateral pleural effusions and cardiomegaly. NT pro-BNP only 718 Elevated troponins, possibly non-ST elevation FL, currently on low intensity heparin infusion per protocol Essential hypertension Former smoker Plan: The patient was seen and evaluated Stable and on 3 L nasal cannula Medications reviewed Continue the current treatment plan Titrate the FiO2 as tolerated Increase her activity as tolerated We'll continue to follow I have personally seen and examined the patient, performed the documentation and the assessment and plan as written. Number of minutes spent on the visit: 10.
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
[2022-12-06] MEDS: ATORVASTATIN 40 MG TAB PO SCH (20:39)
[2022-12-07] MEDS: HEPARIN SODIUM,PORCINE/PF 5,000 UNIT/0.5 ML SYRINGE SQ SCH ×2 (00:20→09:58)
[2022-12-07] MEDS: methylPREDNISolone SOD SUCCI 125 MG/2 ML VIAL IV SCH ×2 (00:20→06:48)
[2022-12-07 08:20] VITALS: BP 130/69; RESP 17; TEMP 98.1
[2022-12-07] MEDS: IPRATROPIUM-ALBUTEROL 3 ML NEB INHALATION SCH ×2 (08:59→11:44)
[2022-12-07] MEDS: SYMBICORT 160-4.5 MCG INHALER INHALATION SCH (09:00)
[2022-12-07] MEDS ORDERED: predniSONE 10 MG TAB PO SCH (09:00)
[2022-12-07 09:06] VITALS: PULSE 72
[2022-12-07] MEDS: DILTIAZEM ORAL 60 MG TAB PO SCH (09:58)
[2022-12-07] MEDS: LOSARTAN 50 MG TAB PO SCH (09:59)
[2022-12-07] MEDS: ASPIRIN 81 MG PO SCH (09:59)
[2022-12-07] MEDS: DOXYCYCLINE 100 MG CAP PO SCH (09:59)
[2022-12-07] MEDS: METOPROLOL TARTRATE 50 MG TAB PO SCH (09:59)
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
--- NOTE | 2022-12-07 10:32 | P.PN ---
Subjective Progress Note Date: 12/07/22 Principal diagnosis: Dyspnea. I am seeing this patient in new consultation today 12/05/2022 for acute shortness of breath that started approximately 3 days ago. Patient is a 72-y ear-old white female with medical history significant for COPD and hypertension. 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 Her primary care provider is Shavon Fisher out of [place], [place]. Her COPD is normally managed with Flovent and albuterol inhalers. She also supplements her regimen with an [id number] Primatene inhaler, and has been using this very frequently over the last couple days. Patient reports shortness of breath starting approximately 3 days ago. This was accompanied with generalized malaise, wheezing, a congested nonproductive cough, and chest discomfort. She denies any fevers, chills, hemoptysis. Denies sick contacts. She denies any orthopnea, PND, lower extremity swelling. Patient is currently sitting up in bed, on 2 L nasal cannula, in no acute distress. Chest x-ray on arrival shows small bilateral pleural effusions and cardiomegaly. No focal consolidation or evidence of pneumonia. she is afebrile. CBC on arrival shows a WBC count of 10.8, hemoglobin 14, hematocrit 42.5, platelets 194. BMP shows sodium 133, potassium 4.5, chloride 95, serum CO2 26, BUN 18, creatinine 0.59, glucose 131. Troponins were mildly elevated at 0.039 and 0.054 respectively. NT proBNP was not significant elevated for patient's age at 718. No ECG evidence of acute ischemia. Heparin is infusing per low-dose protocol. Patient will be monitored on the cardiac stepdown unit once bed available. The patient is seen today 12/06/2022 in follow-up in the emergency department. She is currently sitting up in a stretcher. Awake and alert in no acute distress. Maintaining O2 saturations in the 90s on 3 L/m per nasal cannula. No IV fluids. Echocardiogram reveals preserved left ventricular systolic function with ejection fraction 55-60%. She is continued on DuoNeb inhalations, Symbicort, IV Solu-Medrol. Empiric antibiotics in the form of doxycycline. Heparin for DVT prophylaxis. Progress note dated 12/07/2022. The patient is seen today in the observation unit, room 155. She's feeling much better. She continues on oxygen at 3 L. She's not receiving any IV fluids. She states that she feels well enough to be discharged home. She states that her breathing is much improved, and she is not coughing. No new labs today. The patient was tested for influenza A, and influenza B, respiratory syncytial virus, and coronavirus, and all testing was negative. Objective - Vital Signs Vital signs: Vital Signs Temp 98.1 F 12/07/22 08:17 Pulse 72 12/07/22 09:14 Resp 17 12/07/22 08:17 BP 130/69 12/07/22 08:17 Pulse Ox 96 12/07/22 08:17 FiO2 Intake & Output 12/06/22 12/07/22 12/07/22 18:59 06:59 18:59 Intake Total 320 358 Balance 320 358 Weight 70.307 kg Intake: Oral 320 358 Other: Voiding Method Toilet Toilet # Voids 2 - Exam No acute distress, oriented 3. Currently on 3 L. No audible wheezing, use of accessory muscles HEENT examination is grossly unremarkable. Mucous membranes are moist. No oral lesions. Neck supple. Full range of motion. No adenopathy thyromegaly or neck vein distention. Cardiovascular examination reveals regular rhythm rate. S1-S2 normal. No S3 or S4. No discernible murmur noted. Heart rate 72 bpm. Lungs reveal diminished bilateral breath sounds. Minimal scattered rhonchi. No wheezes or crackles. Saturations are 96% on 3 L. Abdomen soft bowel sounds are heard. No masses or tenderness. Extremities are intact. No cyanosis clubbing or edema. Skin is without rash or lesion. Neurologic examination is brief but nonfocal. - Labs CBC & Chem 7: 12/04/22 22:36 12/04/22 22:36 Assessment and Plan Assessment: Acute hypoxemic respiratory failure secondary to COPD exacerbation. Chest x-ray on arrival shows no focal consolidation or evidence of pneumonia. There were small bilateral pleural effusions and cardiomegaly. NT pro-BNP only 718. Elevated troponins, possibly non-ST elevation AL, currently on low intensity heparin infusion per protocol. Essential hypertension. Former smoker. Plan: Plan dated 12/07/2022. From the pulmonary standpoint, the patient's doing much better, and could be considered for possible discharge. The patient will need to be tested to see if she needs oxygen when discharge. She also needs a follow-up with us in the office, for complete pulmonary function testing. Additional recommendations and suggestions are forthcoming. Labs, x-rays, and all medications are reviewed. The patient's prognosis is guarded. Time with Patient: Less than 30
--- NOTE | 2022-12-07 11:25 | P.PN ---
Subjective Progress Note Date: 12/07/22 HISTORY OF PRESENT ILLNESS: This is a 72-year-old female with a past medical history significant for COPD, former nicotine dependence, and hypertension. 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 We have been asked to see the patient in consultation for abnormal troponins. Patient examined at the bedside. Patient presented to the hospital with a chief complaint of shortness of breath. She states she has been feeling short of breath for the past few days and it has been progressively getting wor se. The patient was found to have an acute COPD exacerbation. She was placed on IV steroids and nebulizer treatments. She reports significant improvement in her shortness of breath this morning. She denies any chest pain or pressure. Telemetry reveals sinus tachycardia with heart rate around 110. Blood pressure slightly elevated with a recent reading of 149/90. * EKG reveals sinus tachycardia with no signs of acute ischemia * Chest xray small bilateral pleural effusions * Laboratory data: WBC 10.8. Hemoglobin 14.0. Platelet count 194. D-dimer 0.54. Sodium 133. Potassium 4.5. BUN 18. Creatinine 0.59. ProBNP 718. Troponin 0.039. 0.054. TSH 0.559. * Current home cardiac medications include Cardizem 120 mg twice a day, losartan 100 mg daily, and carvedilol 6.25 mg twice a day 12/06 Patient is seen today in follow-up. She remains in the emergency center. She states in general she is feeling a little bit better. She continues to have a cough with sputum production. Echocardiogram reveals normal size and systolic function with mild TR and mild MR. Pulse ox 95% on 3 L nasal cannula. 12/07 Patient is seen today in follow-up on the observation unit. No new concerns from the patient. No chest pain. Telemetry is sinus rhythm. Heart rate is in the 60s and 70s, blood pressure 130/69. No repeat blood work for today. PHYSICAL EXAM: VITAL SIGNS: Reviewed. GENERAL: Well-developed in no acute distress. HEENT: Head is normocephalic. Pupils are equal, round. Sclerae anicteric. Mucous membranes of the mouth are moist. Neck supple. No JVD or thyromegaly LUNGS: Respirations even and unlabored. Lungs diminished with inspiratory wheezing and short rhonchi HEART: Regular rate and rhythm. S1 and S2 heard. ABDOMEN: Soft. Nondistended. Nontender. EXTREMITIES: Normal range of motion. No clubbing or cyanosis. Peripheral pulses intact. No lower extremity edema NEUROLOGIC: Awake and alert. Oriented x 3. ASSESSMENT: Shortness of breath Acute COPD exacerbation Acute hypoxic respiratory failure requiring supplemental oxygen Abnormal troponins, likely type II [place] secondary to oxygen supply and demand mismatch Hypertension Sinus tachycardia Former nicotine dependence, patient quit smoking in 2012 PLAN: An acute coronary event has been ruled out Resume home cardiac medications Continue metoprolol 50 mg twice a day. Recommend outpatient stress testing when acute pulmonary issues have resolved Patient is cleared from cardiology for discharge home and may follow-up in the office in a couple weeks. Nurse practitioner note has been reviewed by physician. Signing provider agrees with the documented findings, assessment, and plan of care. Objective - Vital Signs Vital signs: Vital Signs Temp 98.1 F 12/07/22 08:17 Pulse 72 12/07/22 09:14 Resp 17 12/07/22 08:17 BP 130/69 12/07/22 08:17 Pulse Ox 96 12/07/22 08:17 FiO2 Intake & Output 12/06/22 12/07/22 12/07/22 18:59 06:59 18:59 Intake Total 320 358 Balance 320 358 Weight 70.307 kg Intake: Oral 320 358 Other: Voiding Method Toilet Toilet # Voids 2 - Labs CBC & Chem 7: 12/04/22 22:36 12/04/22 22:36
== END 2022-12-07 13:20 | disposition home or self-care (01) | DRG 190 ==
LOC: EC 22:19 → 3SCARD 12-05 02:38 → 4SSUR 12-05 15:34 → 1SOBS 12-06 12:49
PROVIDERS: ADMIT Internal Medicine; ATTEND Internal Medicine
DX: J44.1 Chronic obstructive pulmonary disease with (acute) exacerbation (principal); I21.A1 Myocardial infarction type 2; J96.01 Acute respiratory failure with hypoxia; I11.9 Hypertensive heart disease without heart failure; Z20.822 Contact with and (suspected) exposure to COVID-19; Z87.891 Personal history of nicotine dependence; Z79.83 Long term (current) use of bisphosphonates; Z79.899 Other long term (current) drug therapy; Z79.891 Long term (current) use of opiate analgesic; Z88.0 Allergy status to penicillin
CPT/HCPCS: 36415; 71046; 80053; 83735; 83880; 84145; 84443; 84484; 85025; 85379; 85610; 85730; 87636; 93005; 93306; 94640; 94644; 96365; 96366; 96367; 96372; 96375; 96376; 99291